=== PATIENT | male | born 1995 | race Caucasian/White ===

== ENCOUNTER 2021-03-01 19:42 | Emergency (ER) | payer OTHER | END 2021-03-01 23:30 | disposition home or self-care (01) | LOC: ER1 19:42 | DX: S39.012A Strain of muscle, fascia and tendon of lower back, initial encounter (principal); S29.012A Strain of muscle and tendon of back wall of thorax, initial encounter; S16.1XXA Strain of muscle, fascia and tendon at neck level, initial encounter; S29.011A Strain of muscle and tendon of front wall of thorax, initial encounter; S83.92XA Sprain of unspecified site of left knee, initial encounter; S83.91XA Sprain of unspecified site of right knee, initial encounter; S40.022A Contusion of left upper arm, initial encounter; M79.672 Pain in left foot; F17.200 Nicotine dependence, unspecified, uncomplicated; W11.XXXA Fall on and from ladder, initial encounter | CPT/HCPCS: 71111; 72125; 72128; 72131; 73030; 73060; 73090; 73562; 73630; 99284 ==

== ENCOUNTER → 2021-08-16 | Outpatient (CLI) | payer OTHER | LOC: EXRD 10:22 | DX: M54.2 Cervicalgia (principal); M54.9 Dorsalgia, unspecified; M54.50 Low back pain, unspecified; M79.10 Myalgia, unspecified site | CPT/HCPCS: 72050; 72070; 72100 ==